=== PATIENT | male | born 1990 | race Caucasian/White ===

== ENCOUNTER 2023-11-22 20:04 | Emergency (ER) | payer MEDICAID ==
[~2023-11-22] VITALS: Ht 172.7 cm; Wt 80.0 kg
[2023-11-22 20:38] LABS: BASOPHILS % (AUTO) 0.2 % (0-1); EOSINOPHILS % (AUTO) 0.5 % (0-6); HEMOGLOBIN 12.1 g/dl (14.0-17.9); MEAN CORPUSCULAR HEMOGLOBIN 33.2 PG (27.0-31.0); MEAN CORPUSCULAR HGB CONC 34.7 g/dL (33.0-36.5); MEAN CORPUSCULAR VOLUME 95.6 FL (78-98); MEAN PLATELET VOLUME 8.6 FL (7.4-10.4); MONOCYTES # (AUTO) 0.7 X10'3 (0-0.9); MONOCYTES % (AUTO) 8.1 % (2-12); NEUTROPHILS # (AUTO) 6.9 X10'3 (1.8-7.7); NEUTROPHILS % (AUTO) 79.2 % (42-75); PLATELET COUNT 214 X10'3 (140-440); RED BLOOD COUNT 3.66 X10'6 (4.70-6.10); RED CELL DISTRIBUTION WIDTH 13.3 % (11.5-14.5); WHITE BLOOD COUNT 8.7 X10'3 (4.5-11.0)
[2023-11-22 20:49] LABS: ALANINE AMINOTRANSFERASE 23 U/L (12-78); ALBUMIN 3.6 G/DL (3.4-5.0); ALBUMIN/GLOBULIN RATIO 1.2 (1.1-1.5); ALKALINE PHOSPHATASE 35 IU/L (46-116); ANION GAP 9 (8-16); ASPARTATE AMINO TRANSFERASE 12 U/L (10-37); BILIRUBIN,TOTAL 0.1 MG/DL (0.1-1.0); BLOOD UREA NITROGEN 9 MG/DL (7-18); BUN/CREATININE RATIO 9.2 (10.0-20.0); CALCIUM 8.8 MG/DL (8.5-10.1); CHLORIDE 104 MMOL/L (99-107); CREATININE 0.98 MG/DL (0.60-1.10); GLUCOSE 106 MG/DL (70-104); POTASSIUM 3.5 MMOL/L (3.5-5.1); SALICYLATE 4.9 MG/DL (4.0-20.0); SODIUM 139 MMOL/L (135-145); TOTAL CARBON DIOXIDE 25.6 MMOL/L (24-32); TOTAL PROTEIN 6.7 G/DL (6.4-8.2); eCRCL 105 ML/MIN; eGFR 89 ML/MIN
[2023-11-22 20:51] LABS: ACETAMINOPHEN < 2.0 UG/ML (10-30); VALPROATE < 3.0 UG/ML (50-100)
[2023-11-22] MEDS ORDERED: CLON1TAB2 PO (23:44)
[2023-11-22] MEDS ORDERED: DIVA125T31 PO (23:44)
[2023-11-22] MEDS ORDERED: OLAN10TA3 PO (23:44)
[2023-11-23 02:17] LABS: BILIRUBIN,URINE NEGATIVE (Neg); COLOR,URINE YELLOW (Yellow); GLUCOSE, URINE NEGATIVE (Neg); KETONES,URINE 15 mg/dl (Neg); LEUKOCYTE ESTERASE ,URINE NEGATIVE (Neg); NITRITES, URINE NEGATIVE (Neg); OCCULT BLOOD,URINE NEGATIVE (Neg); PROTEIN,URINE NEGATIVE (Neg); UROBILINOGEN,URINE 0.2 E.U/dL (0.2-1.0)
[2023-11-23 02:23] LABS: UA COLLECTION TYPE VOIDED
[2023-11-23 02:28] LABS: CLARITY,URINE SLIGHTLY CLOUDY (Clear)
[2023-11-23 02:29] LABS: BACTERIA,URINE FEW /HPF (Neg); MUCUS STRANDS FEW /LPF (Neg); RBC,URINE 0-2 /HPF (0-2); SQUAMOUS EPITHELIAL CELL,UR FEW /LPF (FEW); TRANSITIONAL EPI CELLS,URINE FEW /HPF
[2023-11-23 02:32] LABS: ALANINE AMINOTRANSFERASE 24 U/L (12-78); ALBUMIN 3.3 G/DL (3.4-5.0); ALBUMIN/GLOBULIN RATIO 1.1 (1.1-1.5); ALKALINE PHOSPHATASE 33 IU/L (46-116); ANION GAP 8 (8-16); ASPARTATE AMINO TRANSFERASE 13 U/L (10-37); BILIRUBIN,TOTAL 0.2 MG/DL (0.1-1.0); BLOOD UREA NITROGEN 9 MG/DL (7-18); BUN/CREATININE RATIO 10.8 (10.0-20.0); CALCIUM 8.7 MG/DL (8.5-10.1); CHLORIDE 105 MMOL/L (99-107); CREATININE 0.83 MG/DL (0.60-1.10); GLUCOSE 82 MG/DL (70-104); POTASSIUM 3.6 MMOL/L (3.5-5.1); SALICYLATE 4.3 MG/DL (4.0-20.0); SODIUM 139 MMOL/L (135-145); TOTAL CARBON DIOXIDE 26.2 MMOL/L (24-32); TOTAL PROTEIN 6.4 G/DL (6.4-8.2); VALPROATE 39 UG/ML (50-100); eCRCL 124 ML/MIN; eGFR > 90 ML/MIN
[2023-11-23 02:33] LABS: URINE AMPHETAMINE SCREEN NEGATIVE (Neg); URINE BARBITUATE SCREEN NEGATIVE (Neg); URINE BENZODIAZEPINES SCREEN NEGATIVE (Neg); URINE CANNABINOID SCREEN NEGATIVE (Neg); URINE COCAINE SCREEN NEGATIVE (Neg); URINE METHADONE SCREEN NEGATIVE (Neg); URINE PHENCYCLIDINE SCREEN NEGATIVE (Neg)
[2023-11-23 05:48] VITALS: BP 98/53; PULSE 80; RESP 14; TEMP 97.6; O2SAT 97
[2023-11-23] MEDS: clonazePAM 1mg tablet PO SCH (08:37)
[2023-11-23] MEDS ORDERED: olanzapine 10mg tablet PO SCH (21:00)
[2023-11-23] MEDS ORDERED: divalproex sod 125mg tablet.DR PO SCH (21:00)
== END 2023-11-23 17:48 ==
LOC: ER 20:05
DX: R45.851 Suicidal ideations (principal); F25.9 Schizoaffective disorder, unspecified; F31.9 Bipolar disorder, unspecified; Z88.1 Allergy status to other antibiotic agents; Z88.0 Allergy status to penicillin; Z79.899 Other long term (current) drug therapy; Z20.822 Contact with and (suspected) exposure to COVID-19
CPT/HCPCS: 36415; 80053; 80164; 80305; 80329; 81001; 82140; 85025; 87077; 87088; 87186; 87811; 93005; 99285

== ENCOUNTER 2024-04-12 20:54 | Emergency (ER) | payer MEDICAID ==
[~2024-04-12] VITALS: Ht 172.7 cm; Wt 77.3 kg
[~2024-04-12 20:54] MED LIST: CLON1TAB2 PO; DIVA125T31 PO; OLAN10TA3 PO
[2024-04-12 20:57] VITALS: TEMP 97.6
[2024-04-12] MEDS: thiamine 100mg tablet PO ONE (22:12)
[2024-04-12] MEDS: folic acid 1mg tablet PO ONE (22:13)
[2024-04-12] MEDS: hydrOXYzine 25 MG tablet PO ONE (22:14)
[2024-04-12] MEDS: LIDOcaine/epinephrine/tetracaine TOPICAL sol 3 ML syringe TOP ONE (22:16)
[2024-04-12] MEDS: TETanus/Pertussis (Acell)/Diphther VAC/PF (Tdap-Adult) 0.5ml syringe IMVAC ONE (22:18)
[2024-04-12] MEDS ORDERED: VITA1CAP PO (22:52)
[2024-04-12 23:29] VITALS: BP 123/71; PULSE 68; RESP 18; O2SAT 98
[2024-04-12] MEDS: bacitracin 15gm ointment TP STA (23:29)
== END 2024-04-12 23:35 | disposition home or self-care (01) ==
LOC: ER 20:54
DX: S51.812A Laceration without foreign body of left forearm, initial encounter (principal); F32.A Depression, unspecified; Z88.0 Allergy status to penicillin; Z91.041 Radiographic dye allergy status; Z91.040 Latex allergy status; Z79.899 Other long term (current) drug therapy; W45.8XXA Other foreign body or object entering through skin, initial encounter; Y93.89 Activity, other specified; Y92.89 Other specified places as the place of occurrence of the external cause; Y99.8 Other external cause status
CPT/HCPCS: 12002; 90471; 90715; 99284; J3490; Q0177